=== PATIENT | female | born 1975 ===

== ENCOUNTER 2017-01-24 15:04 | Emergency (ER) | payer OTHER ==
--- NOTE | 2017-01-24 18:32 | UC ---
Lower Extremity/Ankle HPI - HPI Summary HPI Summary: COMING DOWN THE STAIRS AT WORK THIS MORNING WHEN SHE MISSED A STEP AND TWISTED HER RIGHT ANKLE. HAS PAIN AND SLIGHT BRUISING. WAS ABLE TO AMBULATE AT THE SCENE. - History of Current Complaint Chief Complaint: UCLowerExtremity Stated Complaint: ANKLE INJURY Time Seen by Provider: 01/24/17 17:14 Hx Obtained From: Patient Hx Last Menstrual Period: 01/22/17 Onset/Duration: Sudden Onset, Lasting Hours, Still Present Severity Initially: Moderate Severity Currently: Moderate Pain Intensity: 6 Pain Scale Used: 0-10 Numeric Aggravating Factor(s): Standing, Ambulation Alleviating Factor(s): Rest, Elevation Able to Bear Weight: Yes - Allergies/Home Medications Allergies/Adverse Reactions: Allergies Allergy/AdvReac Type Severity Reaction Status Date / Time Amoxicillin Allergy Hives/Diff. Verified 01/24/17 17:18 Breathing/I tching Home Medications: Home Medications NK [No Home Medications Reported] 01/24/17 [History Confirmed 01/24/17] PMH/Surg Hx/FS Hx/Imm Hx Previously Healthy: Yes - Surgical History Surgical History: None Surgery Procedure, Year, and Place: csection. breast augmentation - Family History Known Family History: Negative: Hypertension - Social History Alcohol Use: Occasionally Substance Use Type: None Smoking Status (MU): Never Smoked Tobacco Review of Systems Constitutional: Negative Skin: Bruising Respiratory: Negative Cardiovascular: Negative Gastrointestinal: Negative Musculoskeletal: Arthralgia All Other Systems Reviewed And Are Negative: Yes Physical Exam Triage Information Reviewed: Yes Appearance: Well-Appearing, No Pain Distress, Well-Nourished Vital Signs: Initial Vital Signs Temp 98.1 F 01/24/17 17:12 Pulse 65 01/24/17 17:12 Resp 16 01/24/17 17:12 BP 116/58 01/24/17 17:12 Pulse Ox 99 01/24/17 17:12 Vital Signs Reviewed: Yes Eyes: Positive: Conjunctiva Clear ENT: Positive: Hearing grossly normal Neck: Positive: Supple Respiratory: Positive: No respiratory distress, No accessory muscle use Cardiovascular: Positive: Pulses Normal Abdomen Description: Positive: Soft Musculoskeletal: Positive: ROM Intact, No Edema, Other: - TTP RIGHT FOOT LATERAL MID FOOT. NOT TENDER AT NAVICULAR OR OVER 5TH METATARSAL. NO ANKLE TENDERNESS OR SWELLING. ACHILLES INTACT Neurological: Positive: Alert Psychological: Positive: Age Appropriate Behavior Skin: Positive: Other - BRUISING RIGHT FOOT LATERALLY Lower Extremity Course/Dx - Differential Dx/Diagnosis Differential Diagnosis/HQI/PQRI: Contusion, Fracture (Closed) Provider Diagnoses: RIGHT FOOT SPRAIN Discharge - Discharge Plan Condition: Stable Disposition: HOME Patient Education Materials: Foot Sprain (ED) Forms: *Work Release Referrals: Dot Oleary MD [Medical Doctor] - If Needed Additional Instructions: DISCUSSED THERE IS NO EMERGENT INDICATION FOR AN XRAY TODAY. YOU LIKELY HAVE A FOOT SPRAIN AND SHOULD NOTICE SIGNIFICANT IMPROVEMENT OVER THE NEXT FEW DAYS. IF YOU ARE NOT IMPROVING EXPECTED PLEASE SEEK FOLLOW-UP EITHER HERE OR WITH YOUR PCP. YOU MAY BENEFIT FROM AN XRAY AT THAT TIME. REST, ICE, COMPRESS, ELEVATE. IBUPROFEN MAX DOSE: 600MG (3 TABS) EVERY 6 HRS OR 800MG (4 TABS) EVERY 8 HRS OR NAPROXEN MAX DOSE: 440MG (2 TABS) EVERY 12 HRS TYLENOL MAX DOSE: 1000MG (2 EXTRA STRENGTH TABS) EVERY 8 HRS
== END 2017-01-24 17:45 | disposition home or self-care (01) ==
LOC: UCEAST 15:04
DX: S93.601A Unspecified sprain of right foot, initial encounter (principal); X50.1XXA Overexertion from prolonged static or awkward postures, initial encounter; Y93.9 Activity, unspecified; Y99.9 Unspecified external cause status; Z88.1 Allergy status to other antibiotic agents
CPT/HCPCS: 99202; G0463